=== PATIENT | male | born 1975 | race Caucasian/White ===

== ENCOUNTER 2025-09-24 17:04 | Emergency (ER) | payer MEDICARE, SELFPAY ==
[2025-09-24 17:08] VITALS: BP 128/92; PULSE 89; RESP 18; TEMP 36.6; O2SAT 93
--- NOTE | 2025-09-24 17:09 | XRR_ITS ---
PROCEDURE INFORMATION: Exam: XR Chest Exam date and time: 09/24/2025 5:38 PM Age: 50 years old Clinical indication: Shortness of breath; Additional info: SOB TECHNIQUE: Imaging protocol: Radiologic exam of the chest. Views: 1 view. COMPARISON: No relevant prior studies available. FINDINGS: Lungs: Unremarkable. No consolidation. Pleural spaces: Unremarkable. No pleural effusion. No pneumothorax. Heart/Mediastinum: Unremarkable. No cardiomegaly. Bones/joints: Unremarkable. XR/XR chest 1V portable [id number] IMPRESSION: No acute findings.
--- NOTE | 2025-09-24 17:10 | ECG_ITS ---
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 Measurements Intervals [place] Rate: 90 P: 85 SC: 173 QRS: 77 QRSD: 88 T: 65 QT: 338 QTc: 415 Interpretive Statements SINUS RHYTHM No previous ECG available for comparison Electronically Signed On 09-25-2025 13:50:32 [employer]CHO[employer]IC DIRECTOR by Lonnie Clifton M.D. [id number]
[2025-09-24 17:50] LABS: Hematocrit 46.2 % (37-53); Hemoglobin 15.40 g/dL (11.27-16.99); Mean Corpuscular HGB Conc 33.3 g/dL (30-55); Mean Corpuscular Hemoglobin 28.0 pg (27-33); Mean Corpuscular Volume 84.0 fl (82-101); Nucleated Red Blood Cells % 0 %; Platelet Count 312 10^3/cmm (157-399); Red Blood Count 5.50 10^6/uL (3.85-5.65); White Blood Count 16.82 10^3/uL (3.29-11.43)
--- NOTE | 2025-09-24 17:59 | W.ED.SOB ---
HPI - SOB/Dyspnea General: Chief Complaint: Shortness of Breath/Dyspnea Stated Complaint: SOB Pressure on chest Can't Breath Time Seen by Provider: 09/24/25 17:35 History of Present Illness: HPI Narrative: Patient is a pleasant 50-year-old male with history of diagnosed with pneumonia 3 weeks ago, on doxycycline, and Levaquin x 2 runs. Finished both of these, ongoing wheezing, difficulty with shortness of breath, at rest and with exertion. Patient states he has to focus on breathing because he is short winded. He stopped smoking right about 3 weeks ago when he became ill. He has had 2 courses of Medrol Dosepak. Oxygen saturation is 93% on room air. Patient stated he stopped smoking marijuana as well. He has had no inhalants that would cause irritation. He is unaware of reactive airway disease, or COPD. No chest pain. Associated symptoms: Reports chest congestion; Deny abdominal pain, chest pain, fever(s), hemoptysis, nausea, palpitations or vomiting Related Data Home Medications ?Medication ?Instructions ?Recorded ?Confirmed albuterol sulfate 90 mcg/actuation 2 puff inhalation QID 09/24/25 09/24/25 aerosol inhaler (Ventolin HFA) Previous Rx's ?Medication ?Instructions ?Recorded prednisone 10 mg tablets in a dose 10 mg PO DIRECTED #30 ea 09/24/25 pack Allergies Allergy/AdvReac Type Severity Reaction Status Date / Time Penicillins Allergy Unknown Verified 09/24/25 16:30 Review of Systems General: Reports: 10 or more systems reviewed and unremarkable except in HPI and below Const: Denies: fever(s), chills or body aches ENMT: Denies: throat pain or nasal congestion Card: Denies: chest pain or palpitations Resp: Reports: dyspnea, non-productive cough, wheezing, pain on inspiration and chest congestion; Denies: stridor, change in phlegm color or hemoptysis GI: Denies: abdominal pain, nausea or vomiting : Denies: flank pain or difficulty urinating Musc: Denies: neck pain or back pain Neuro: Denies: headache(s) or numbness in extremities Psych: Denies: anxiety or depression PFSH ED PFSH: Social History Smoking and tobacco/nicotine status: former use of tobacco/nicotine Physical Exam Const: COMMON NORMALS: no acute distress, average body habitus and patient oriented x3 GENERAL APPEARANCE: cooperative HENMT: COMMON NORMALS: normocephalic and atraumatic HEAD & SCALP: normocephalic and atraumatic Lymph: LYMPHATIC: no lymphadenopathy noted Resp: COMMON NORMALS: normal respiratory effort, No retractions and No use of accessory muscles EFFORT & INSPECTION: Yes able to speak in complete sentences AUSCULTATION: wheezes expiratory wheezes, inspiratory wheezes, lower bilaterally and upper bilaterally Cardio: COMMON NORMALS: regular rate and regular rhythm RATE: regular rate RHYTHM: regular rhythm GI: COMMON NORMALS: Normal to inspection, nondistended, normoactive bowel sounds present, Soft to palpation, non-tender and No hepatosplenomegaly present PALPATION: Yes Soft to palpation and Yes No hepatosplenomegaly present : COMMON NORMALS: Yes no CVA tenderness BLADDER/KIDNEY EXAM: Yes no CVA tenderness Back/Pelvis: COMMON NORMALS: no CVA tenderness Extremity: COMMON NORMALS: normal to inspection, full ROM and capillary refill normal Neuro: COMMON NORMALS: patient oriented x3, CN's II-XII intact bilaterally and moves all extremities Psych: COMMON NORMALS: mental status grossly normal, Normal thought process present and cooperative THOUGHT PROCESS: Normal thought process present Course Reevaluation(s): Reevaluation #1: 1900: Patient states he feels so much better, he does not even feel like the same person. Vital Signs: Vital signs: Vital Signs Temperature 98 F 09/24/25 17:08 Pulse Rate 82 09/24/25 18:30 Respiratory Rate 20 H 09/24/25 18:07 Blood Pressure 152/87 09/24/25 18:30 Pulse Oximetry 95 09/24/25 18:30 Oxygen Delivery Me thod Room Air 09/24/25 18:30 MDM - SOB/Dyspnea Medical Decision Making Patient is a 50-year-old male that presents due to shortness of breath. He has increasing wheezing. He has completed his second round of Medrol Dosepak, 2 runs of Levaquin, and 1 run of doxycycline for his treatment of pneumonia. He is able to speak full sentences. He does have diffuse wheezes throughout all lung palmer. Will give Solu-Medrol x 1, and 1 hour-long aerosol treatment. Patient has voiced that he does not want to be placed in the hospital and observation. Oxygen saturation is 93% on room air. Will see if he improves with his I suspect COPD exacerbation after treatment. Routine labs and cardiac workup, chest x-ray ordered. Initial findings on chest x-ray showed no acute process. Patient has leukemoid reaction associated with recent steroid use. Procalcitonin is negative. Will treat for COPD exacerbation. Patient is feeling better after steroids IV, and aerosol x 30 minutes. He has inhaler for home. He will make an appointment with his doctor next week for his follow-up. Medical Records I reviewed the patient's medical records. Lab Data I reviewed the patient's lab results. 09/24/25 17:29 09/24/25 17:29 Labs/Radiology: Radiology Impressions Chest X-Ray 09/24/25 17:09 IMPRESSION: No acute findings. Laboratory Results WBC 16.82 10^3/uL (3.29-11.43) H 09/24/25 17: RBC 5.50 10^6/uL (3.85-5.65) 09/24/25 17:29 Hgb 15.40 g/dL (11.27-16.99) 09/24/25 17: Hct 46.2 % (37-53) 09/24/25 17: MCV 84.0 fl (82-101) 09/24/25 17: MCH 28.0 pg (27-33) 09/24/25 17: MCHC 33.3 g/dL (30-55) 09/24/25 17: RDW 13.8 % (12.1-15.1) 09/24/25 17: Plt Count 312 10^3/cmm (157-399) 09/24/25 17: MPV 11.2 fL (7.4-10.4) H 09/24/25 17: Neut % (Auto) 62.5 % 09/24/25 17: Lymph % (Auto) 23.2 % 09/24/25 17: [place] % (Auto) 7.6 % 09/24/25 17: Eos % (Auto) 5.3 % 09/24/25 17: Baso % (Auto) 1.0 % 09/24/25 17: Neut # (Auto) 10.53 10^3/uL (1.8-7.7) H 09/24/25 17: Lymph # (Auto) 3.9 10^3/uL (0.8-4.8) 09/24/25 17: [place] # (Auto) 1.3 10^3/uL (0.2-0.9) H 09/24/25 17: Eos # (Auto) 0.9 10^3/uL (0.0-0.8) H 09/24/25 17: Baso # (Auto) 0.2 10^3/uL (0.0-0.1) H 09/24/25 17: Nucleated RBC % (auto) 0 % 09/24/25: Nucleated RBCs # 0.0 /100WBC 09/24/25 17: Sodium 138 mmol/L (136-145) 09/24/25 17: Potassium 4.3 mmol/L (3.5-5.1) 09/24/25 17: Chloride 102 mmol/L (98-107) 09/24/25 17: Carbon Dioxide 23 mmol/L (22-29) 09/24/25 17: Anion Gap 17.3 (5-19) 09/24/25 17: BUN 14 mg/dL (6-20) 09/24/25 17: Creatinine 1.0 mg/dL (0.7-1.2) 09/24/25 17: GFR Calculation 79.8 mL/min (90-130) L 09/24/25 17: Glucose 97 mg/dL (65-115) 09/24/25 17: Calculated Osmolality 286 mOsm/kg (285-295) 09/24/25 17: Lactic Acid 0.8 mmol/L (0.5-2.2) 09/24/25 17: Calcium 9.3 mg/dL (8.5-10.5) 09/24/25 17: Total Bilirubin 0.2 mg/dL (0.15-1.2) 09/24/25 17: AST 13 U/L (0-40) 09/24/25 17: ALT 10 U/L (0-41) 09/24/25 17: Alkaline Phosphatase 101 U/L (40-130) 09/24/25 17:29 Troponin T Baseline < 6 ng/L (0-15) 09/24/25 17:29 Total Protein 7.6 g/dL (6.6-8.7) 09/24/25 17:29 Albumin 4.5 g/dL (3.5-5.2) 09/24/25 17:29 Globulin 3.1 g/dL (1.3-4.6) 09/24/25 17:29 Procalcitonin 0.04 ng/mL (0-0.5) 09/24/25 17:29 XR interpretation done by ED provider, pending radiology final review ED provider radiology interpretation(s): No acute findings. Discharge Plan Discharge Patient Disposition: Home Clinical Impression: Acute exacerbation of chronic obstructive airways disease Leukocytosis Qualifiers: Leukocytosis type: leukemoid reaction Qualified Code(s): D72.823 - Leukemoid reaction Condition: Stable Prescriptions: New prednisone 10 mg tablets,dose pack 10 mg PO DIRECTED Qty: 30 0RF Rx Instructions: Take 4 x 3 days, take 3 x 3 days, take 2 x 3 days, take 1 x 3 days. No Action albuterol sulfate [Ventolin HFA] 90 mcg/actuation HFA aerosol inhaler 2 puff inhalation QID Discharge Orders: Discharge ED (Routine); Ordered 09/24/25 Ordered By: Dianne Reich Discharge Diet: Low Salt Discharge Activity: Resume usual activity Patient Instructions: COPD (Chronic Obstructive Pulmonary Disease) (ED), Patient Portal & [facility] Instructions Activity Restrictions/Additional Instructions: - Return to the ED if you have worsening shortness of breath for reevaluation, or fever greater 100.4 ?F. - At the pharmacy: Prednisone taper steroid medication. You will be on this for 12 days. You will need to have a reevaluation by your primary care doctor or urgent care towards the end your therapy. Please call tomorrow for close follow-up and ointment with primary care. Thank you for choosing [facility] for your healthcare needs today. You have been screened and evaluated and felt safe for discharge. Health conditions do change or evolve sometimes and as such it is important that you follow up with your Primary Doctor to be re checked, 3-5 days is a general good time frame for follow up. You are always welcome to return to the ED for re assessment if your symptoms are worsening or you have new concerns Stand Alone Forms: Work/School Release Print Language: Trinidadian Coding Level of Care Code ED Certified Pharmacist Assistant for Ronny Munoz
[2025-09-24 18:07] VITALS: PULSE 77; RESP 20; O2SAT 95
[2025-09-24 18:12] LABS: Troponin(5th) Baseline < 6 ng/L (0-15)
[2025-09-24 18:13] LABS: Alanine Aminotransferase 10 U/L (0-41); Albumin Level 4.5 g/dL (3.5-5.2); Alkaline Phosphatase 101 U/L (40-130); Anion Gap 17.3 (5-19); Aspartate Amino Transferase 13 U/L (0-40); Blood Urea Nitrogen 14 mg/dL (6-20); Calcium 9.3 mg/dL (8.5-10.5); Carbon Dioxide 23 mmol/L (22-29); Chloride 102 mmol/L (98-107); Globulin 3.1 g/dL (1.3-4.6); Glucose 97 mg/dL (65-115); Osmolality Calculated 286 mOsm/kg (285-295); Potassium 4.3 mmol/L (3.5-5.1); Sodium 138 mmol/L (136-145); Total Protein 7.6 g/dL (6.6-8.7)
[2025-09-24 18:14] LABS: Lactic Sepsis W/Reflex 0.8 mmol/L (0.5-2.2)
[2025-09-24 18:16] VITALS: PULSE 81
[2025-09-24 18:19] LABS: Procalcitonin 0.04 ng/mL (0-0.5)
[2025-09-24] MEDS: methylPREDNISolone sod succ 125 mg/2 mL INJ 80 MG IVP (18:23)
[2025-09-24 18:30] VITALS: BP 152/87; PULSE 82; O2SAT 95
[2025-09-24 19:29] VITALS: BP 128/78; PULSE 78; O2SAT 91
== END 2025-09-24 19:36 | disposition home or self-care (01) ==
PROVIDERS: Physician Assistant; Emergency Provider Physician Assistant
DX: J44.1 Chronic obstructive pulmonary disease with (acute) exacerbation (principal); D72.823 Leukemoid reaction; Z87.891 Personal history of nicotine dependence
CPT/HCPCS: 36415; 71045; 80053; 83605; 84145; 84484; 85025; 93005; 94640; 96374; 99285; J2919; J9999